=== PATIENT | female | born 1980 | race African-American/Black ===

== ENCOUNTER 2025-03-25 06:20 | Inpatient (IN) | payer OTHER ==
[2025-03-19 13:37] VITALS: BMI 38.5
[2025-03-25] MEDS ORDERED: DEXMEDETOMIDINE HCL 200 MCG/2 ML IVPB ONE (07:17)
[2025-03-25] MEDS ORDERED: MIDAZOLAM HCL 2 MG/2 ML SINGLE DOSE VIAL ONE (07:19)
[2025-03-25] MEDS ORDERED: ROCURONIUM BROMIDE 50 MG/5 ML SYRINGE ONE (07:19)
[2025-03-25] MEDS ORDERED: LIDOCAINE HCL/PF 2% SDV 5ML VIAL ONE (07:19)
[2025-03-25] MEDS ORDERED: PROPOFOL 20 ML ONE (07:19)
[2025-03-25] MEDS ORDERED: SUCCINYLCHOLINE CHLORIDE 200 MG/10 ML SYRINGE ONE (07:19)
[2025-03-25] MEDS ORDERED: PROPOFOL 80 ML ONE (07:24)
[2025-03-25] MEDS: ceFAZolin SODIUM 1 GM VIAL IVPB ONE ×3 (08:05)
[2025-03-25] MEDS: VANCOMYCIN 1 GM in NS (PRE-DOCKED) 1,000 MG/250 ML (RESTRICTED TO ID ONLY) IVPB ONE (08:05)
[2025-03-25] MEDS: LIDOCAINE 1%/EPI 1:100000 (20 ML MULTI DOSE VIAL) IJ ONE ×3 (08:22→08:24)
[2025-03-25] MEDS ORDERED: DEXAMETHASONE SOD PHOSPHATE 4 MG/1 ML VIAL ONE (08:25)
[2025-03-25] MEDS ORDERED: ceFAZolin SODIUM 1 GM VIAL ONE (08:25)
[2025-03-25] MEDS ORDERED: VANCOMYCIN 1,000 MG VIAL (RESTRICTED TO ID ONLY) ONE (08:25)
[2025-03-25] MEDS ORDERED: TRANEXAMIC ACID 1000 MG/10 ML VIAL ONE (08:25)
[2025-03-25] MEDS ORDERED: ONDANSETRON 4 MG/2 ML VIAL IVPUSH PRN ×2 (08:31→10:22)
[2025-03-25] MEDS ORDERED: PROMETHAZINE HCL 25 MG/1 ML VIAL IVPB PRN (08:31)
[2025-03-25] MEDS ORDERED: PROPOFOL 40 ML ONE (08:37)
[2025-03-25] MEDS: HYDROGEN PEROXIDE 473 ML PO ONE ×3 (09:07→09:30)
[2025-03-25] MEDS: GENTAMICIN SO4 80 MG/2 ML VIAL IVPB ONE ×3 (09:07→09:30)
[2025-03-25] MEDS ORDERED: ONDANSETRON 4 MG/2 ML VIAL ONE (09:40)
[2025-03-25] MEDS ORDERED: NEOSTIGMINE METHYLSULFATE 0.5 MG/1 ML - 10 ML MDV ONE (09:41)
[2025-03-25] MEDS ORDERED: GLYCOPYRROLATE 0.2 MG/1 ML VIAL ONE (09:41)
[2025-03-25] MEDS ORDERED: ALBUTEROL SO4 0.083% IH SOL 2.5 MG/3 ML VIAL.NEB. NEB ONE (10:18)
[2025-03-25] MEDS: ALBUTEROL SO4 0.083% IH SOL 2.5 MG/3 ML VIAL.NEB. NEB PRN (10:20)
[2025-03-25] MEDS ORDERED: morphine CARPU-JECT 4 MG/1 ML DISP.SYRIN IVPUSH PRN (10:22)
[2025-03-25] MEDS ORDERED: diphenhydrAMINE HCL 25 MG CAPSULE (FP) PO PRN (10:22)
[2025-03-25] MEDS: ACETAMINOPHEN 1000 MG/100 ML BAG IVPB ONE (10:30)
[2025-03-25] MEDS ORDERED: ACETAMINOPHEN INJECTION 100 ML ONE (10:31)
[2025-03-25] MEDS: LACTATED RINGERS SOLUTION 1,000 ML IV SCH (12:27)
[2025-03-25] MEDS: DOCUSATE SODIUM 100 MG CAPSULE (FP) PO SCH (14:31)
[2025-03-25] MEDS: HEPARIN NA (PORCINE) 5,000 UNITS/ML 1ML VIAL SQ SCH (14:31)
[2025-03-25] MEDS: LACTATED RINGERS SOLUTION 1,000 ML/1,000 ML INFUS.BAG IV SCH (14:32)
[2025-03-25] MEDS: oxyCODONE HCL 5 MG TABLET PO PRN (16:05)
[2025-03-25] MEDS: CEFAZOLIN 1 GM/D5W 1 GM/50 ML BAG IVPB SCH (17:45)
[2025-03-25] MEDS: BUDESONIDE/FORMETEROL FUMARATE 160/4.5 mcg INHALER IH SCH (20:52)
[2025-03-26 08:31] LABS: HEMATOCRIT 36.6 % (34.1-44.9); HEMOGLOBIN 11.4 g/dL (11.2-15.7); MCHC 31.1 g/dl (32.2-35.5); MEAN CELL VOLUME 88.4 fl (79.4-94.8); MEAN PLT VOLUME 9.8 fl (9.4-12.3); PLATELET COUNT 287 x10^3/uL (182-369); RDW 14.6 % (12.2-17.1)
[2025-03-26 09:03] LABS: BLOOD UREA NITROGEN 7.9 mg/dL (7-18); CALCIUM 9.3 mg/dL (8.5-10.1)
[2025-03-26 09:06] LABS: CREATININE 0.6 mg/dL (0.55-1.3)
[2025-03-26] MEDS: FOLIC ACID 1 MG TABLET (FP) PO SCH (09:58)
[2025-03-26] MEDS: FERROUS SO4 325 MG TABLET (FP) PO SCH (09:58)
[2025-03-26] MEDS: ACETAMINOPHEN 500 MG TABLET (FP) PO SCH (09:58)
[2025-03-27 08:35] LABS: HEMOGLOBIN 10.9 g/dL (11.2-15.7); MEAN PLT VOLUME 9.9 fl (9.4-12.3); PLATELET COUNT 275 x10^3/uL (182-369); RDW 14.7 % (12.2-17.1)
[2025-03-27 08:37] LABS: HEMATOCRIT 34.6 % (34.1-44.9); MCHC 31.5 g/dl (32.2-35.5); MEAN CELL VOLUME 88.7 fl (79.4-94.8)
[2025-03-27 08:55] LABS: POTASSIUM 3.7 mmol/L (3.5-5.1)
[2025-03-27 09:07] LABS: ALBUMIN 3.2 g/dl (3.4-5.0); BLOOD UREA NITROGEN 10.2 mg/dL (7-18); CALCIUM 9.3 mg/dL (8.5-10.1)
[2025-03-27 09:11] LABS: CREATININE 0.6 mg/dL (0.55-1.3)
[2025-03-27 09:12] LABS: BILIRUBIN,TOTAL 0.4 mg/dL (0.2-1); TOT PROT 6.7 g/dl (6.4-8.2)
[2025-03-27 10:35] VITALS: RESP 18
[2025-03-27] MEDS: CEFAZOLIN 1 GM/D5W 1 GM/50 ML BAG IVPB SCH (18:12)
[2025-03-27] MEDS: oxyCODONE HCL 5 MG TABLET PO PRN (21:05)
[2025-03-28 06:36] VITALS: PULSE 100
[2025-03-28] MEDS ORDERED: ALBUTEROL SO4 HFA INHALER IH PRN (07:18)
[2025-03-28 10:36] VITALS: BP 127/68; TEMP 98
[2025-03-28] MEDS ORDERED: morphine SULFATE 4 MG/ML VIAL IVPUSH PRN (11:32)
== END 2025-03-28 13:04 | disposition home or self-care (01) | DRG 321 ==
LOC: J2C 06:20 → J8W 13:26 → EDSTATUS 03-26 08:00
PROVIDERS: ADMIT Family Medicine; ATTEND Family Medicine
PROC: 0PB30ZZ Excision of Cervical Vertebra, Open Approach (ICD-10-PCS; 2025-03-25)
PROC: 01N10ZZ Release Cervical Nerve, Open Approach (ICD-10-PCS; 2025-03-25)
PROC: 4A1004G Monitoring of Central Nervous Electrical Activity, Intraoperative, Open Approach (ICD-10-PCS; 2025-03-25)
PROC: 0RG20A0 Fusion of 2 or more Cervical Vertebral Joints with Interbody Fusion Device, Anterior Approach, Anterior Column, Open Approach (ICD-10-PCS; principal; 2025-03-25 08:00)
DX: M47.12 Other spondylosis with myelopathy, cervical region (principal); M50.20 Other cervical disc displacement, unspecified cervical region; E11.9 Type 2 diabetes mellitus without complications; E66.9 Obesity, unspecified; M40.202 Unspecified kyphosis, cervical region; J45.909 Unspecified asthma, uncomplicated; Z68.38 Body mass index [BMI] 38.0-38.9, adult
CPT/HCPCS: 36415; 72125-TC; 76000-TC-FY; 80048; 80053; 81025; 82962; 83036; 85025; 85027; 94640; 94760; 97116-GP; 97161-GP; C1713; J0131; J1644